=== PATIENT | male | born 1950 | race Caucasian/White ===

== ENCOUNTER 2017-10-06 07:12 | Day surgery (SDC) | payer MEDICARE ==
[~2017-10-06] VITALS: Ht 188 cm; Wt 96.8 kg
[~2017-10-06 07:12] MED LIST: AMLO10TA2 PO; ASCO500T8 PO; ASPI-496 PO; CALC1TAB PO; CHOL20002 PO; CHOL40002 PO; CHOL500045 PO; CHOL500050 PO; FENO145T30 PO; FISH OIL PO; FOLIC ACID PO; LEVE500T53 PO; LORA-445 PO; LOVA40TA2 PO; METAMUCIL FIBE1 EACH PO; METO25TA35 PO; MULT-464 PO; NEBI10TA3 PO; OMEG1CAP23 PO; ONDA4TAB10 PO; OXYC15TA PO; OXYC60TA8 PO; OXYCODONE CR PO; PANT40TA5 PO; PREG100C PO; PREG150C PO; PROC10TA PO; ROPI0.5T2 PO; TIAG4TAB PO; TIZA4TAB PO; TOPI25TA8 PO; UBID100C41 PO; VITA1TAB61 PO; VITAMIN B PO; [UNRECOGNIZED DRUG - OTHER]; [UNRECOGNIZED DRUG - OTHER] PO
[2017-10-06 08:30] VITALS: BP 133/81
[2017-10-06] MEDS: LACTATED RINGERS 1,000 ML IV SCH (08:51)
[2017-10-06] MEDS ORDERED: OXYcodone 5 MG/5 ML ORAL.SOL UDC PO PRN (10:00)
[2017-10-06] MEDS ORDERED: ONDANSETRON 2MG/ML, 2ML IVPush PRN (10:00)
[2017-10-06] MEDS ORDERED: METOCLOPRAMIDE 5 MG/ML, 2ML IV PRN (10:00)
[2017-10-06] MEDS ORDERED: ACETAMINOPHEN 325 MG TABLET PO PRN (10:00)
[2017-10-06] MEDS ORDERED: hydrALAzine 20 MG/ML, 1ML IV PRN (10:00)
[2017-10-06] MEDS ORDERED: FENTANYL PF 100 MCG/2ML IV PRN (10:00)
[2017-10-06] MEDS ORDERED: LABETALOL 5MG/ML, 20ML IV PRN (10:00)
[2017-10-06] MEDS ORDERED: HYDROmorphone 1 MG/ML, 1ML IV PRN (10:00)
[2017-10-06] MEDS ORDERED: PROPOFOL 10 MG/ML, 20ML ONE (10:46)
[2017-10-06] MEDS ORDERED: SUCCINYLCHOLINE 20 MG/ML, 10ML ONE (10:46)
== END 2017-10-06 11:35 ==
LOC: OUT 07:12
PROVIDERS: ATTEND Internal Medicine Gastroenterology
DX: K29.60 Other gastritis without bleeding (principal); K31.89 Other diseases of stomach and duodenum; H54.7 Unspecified visual loss; I12.9 Hypertensive chronic kidney disease with stage 1 through stage 4 chronic kidney disease, or unspecified chronic kidney disease; N18.9 Chronic kidney disease, unspecified; E78.5 Hyperlipidemia, unspecified; Z90.49 Acquired absence of other specified parts of digestive tract; Z98.890 Other specified postprocedural states; Z87.891 Personal history of nicotine dependence
CPT/HCPCS: 43248; 93005; J0330; J2704; J7120